=== PATIENT | female | born 1990 | race Caucasian/White ===

== ENCOUNTER 2017-03-16 13:46 | Emergency (ER) | payer MEDICAID, OTHER | END 2017-03-16 14:43 | disposition home or self-care (01) | LOC: E/R 13:46 | DX: O99.352 Diseases of the nervous system complicating pregnancy, second trimester (principal); H61.23 Impacted cerumen, bilateral; Z3A.18 18 weeks gestation of pregnancy | CPT/HCPCS: 99283; Z7502 ==